=== PATIENT | female | born 1980 | race African-American/Black ===

== ENCOUNTER 2021-03-28 19:30 | Emergency (ER) | payer SELFPAY ==
--- NOTE | 2021-03-28 19:40 | PC.NURSE ---
Pt here to ED via EMS> pt refuses vitals . Pt refuses to answer multiple questions. PT refused to answer her name and where she is at . Pt refuses tx at this time. pT urinated on the ground .
--- NOTE | 2021-03-28 19:55 | PC.NURSE ---
PT seen running through ED heading to EMS doors. PT had refused to see provider.
== END 2021-03-28 19:55 | disposition left against medical advice (07) ==
DX: T67.5XXA Heat exhaustion, unspecified, initial encounter (principal)
CPT/HCPCS: 99199